=== PATIENT | male | born 1950 | race Caucasian/White ===

== ENCOUNTER 2018-11-11 17:16 | Emergency (ER) | payer MEDICARE ==
[2018-11-11] MEDS ORDERED: SODIUM CHLORIDE 0.9% 1,000 ML IV STA (17:26)
[2018-11-11 17:29] LABS: Glucose,Whole Blood 403 mg/dL (75-99)
[2018-11-11] MEDS ORDERED: SODIUM CHLORIDE 0.9% 1,000 ML IV ONE (17:45)
[2018-11-11 18:13] LABS: Basophils % (A) 1 %; Eosinophils # (A) 0.2 k/uL (0-0.7); Eosinophils % (A) 4 %; HCT 41.4 % (39.0-53.0); HGB 13.9 gm/dL (13.0-17.5); Lymphocytes # (A) 1.1 k/uL (1.0-4.8); Lymphocytes % (A) 24 %; MCH 30.2 pg (25.0-35.0); MCHC 33.6 g/dL (31.0-37.0); MCV 89.9 fL (80.0-100.0); Mean Platelet Volume 9.8; Monocytes # (A) 0.3 k/uL (0-1.0); Monocytes % (A) 5 %; Neutrophils % (A) 63 %; Platelet Count 109 k/uL (150-450); RBC 4.61 m/uL (4.30-5.90); RDW 14.3 % (11.5-15.5); WBC 4.8 k/uL (3.8-10.6)
[2018-11-11 18:22] LABS: ALT 42 U/L (21-72); AST 31 U/L (17-59); Albumin 3.8 g/dL (3.5-5.0); Alkaline Phosphatase 199 U/L (38-126); Anion Gap 10 mmol/L; Blood Urea Nitrogen 26 mg/dL (9-20); Calcium 9.5 mg/dL (8.4-10.2); Carbon Dioxide 20 mmol/L (22-30); Chloride 114 mmol/L (98-107); Glucose 402 mg/dL (74-99); Sodium 144 mmol/L (137-145); Total Bilirubin 0.6 mg/dL (0.2-1.3); Total Protein 6.6 g/dL (6.3-8.2)
[2018-11-11] MEDS ORDERED: INSULIN ASPART (NovoLOG) 100 UNIT/ML VIAL SQ ONE ×2 (18:25→20:52)
--- NOTE | 2018-11-11 18:55 | ED ---
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 Patient reports that he currently takes metformin 500 mg twice today for his type 2 diabetes. Patient reports that he has had blood sugars in the 400s for approximately one week. Patient reports that his primary care physician advised him to present to the ER for further evaluation. Patient otherwise asymptomatic. Patient denies any chest pain shortness of breath abdominal pain nausea vomiting diarrhea, fevers or chills. Patient denies any dysuria, cough, congestion. Systemic: Pt denies fatigue, myalgia, fever/chills, rash. Pt denies weakness, night sweats, weight loss. Neuro: Pt denies headache, visual disturbances, syncope or pre-syncope. HEENT: Pt denies ocular discharge or irritation, otalgia, rhinorrhea, pharyngitis or notable lymphadenopathy. Cardiopulmonary: Pt denies chest pain, SOB, heart palpitations, dyspnea on exertion. Abdominal/GI: Pt denies abdominal pain, n/v/d. : Pt denies dysuria, burning w/ urination, frequency/urgency. Denies new onset urinary or bowel incontinence. MSK: Pt denies myalgia, loss of strength or function in extremities. Neuro: Pt denies new onset weakness, paresthesias. - Related Data Home Medications Medication Instructions Recorded Confirmed Aspirin EC [Ecotrin Low Dose] 81 mg PO DAILY 11/11/18 11/11/18 Atenolol 25 mg PO DAILY 11/11/18 11/11/18 Atorvastatin [Lipitor] 20 mg PO DAILY 11/11/18 11/11/18 Desmopressin (Nonrefrigerated) 1 spray NASAL DIRECTED 11/11/18 11/11/18 [Ddavp 0.01% Nasal Glendo] Insulin NPH Hum/Reg Insulin Hm 12 unit SQ HS 11/11/18 11/11/18 [humuLIN 70/30 Kwikpen] Insulin NPH/Reg Insulin 70/30 16 units SQ QAM 11/11/18 11/11/18 [humuLIN 70/30 VIAL] Levothyroxine Sodium [Synthroid] 88 mcg PO DAILY 11/11/18 11/11/18 Lisinopril [Prinivil] 5 mg PO DAILY 11/11/18 11/11/18 Multivitamins, Thera [Multivitamin 1 tab PO DAILY 11/11/18 11/11/18 (formulary)] Cumberland-3 Fatty Acids [[place]umberland-3] 1,000 mg PO DAILY 11/11/18 11/11/18 Travoprost [Travatan Z 0.004%] 1 drop BOTH EYES HS 11/11/18 11/11/18 metFORMIN HCL ER [Glucophage Xr] 500 mg PO AC-BID 11/11/18 11/11/18 Allergies Allergy/AdvReac Type Severity Reaction Status Date / Time No Known Allergies Allergy Verified 11/11/18 18:20 Review of Systems ROS Statement: Those systems with pertinent positive or pertinent negative responses have been documented in the HPI. ROS Other: All systems not noted in ROS Statement are negative. Past Medical History Past Medical History: Diabetes Mellitus Additional Past Medical History / Comment(s): Brain aneurysm History of Any Multi-Drug Resistant Organisms: None Reported Additional Past Surgical History / Comment(s): Brain Past Psychological History: No Psychological Hx Reported Smoking Status: Current every day smoker Past Alcohol Use History: None Reported Past Drug Use History: None Reported General Exam - General Exam Comments Initial Comments: Constitutional: NAD, AOX3, Pt has pleasant affect. HEENT: NC/AT, trachea midline, neck supple, no lymphadenopathy. Posterior pharynx non erythematous, without exudates. External ears appear normal, without discharge. Mucous membranes moist. Eyes PERRLA, EOM intact. There is no scleral icterus. No pallor noted. Cardiopulmonary: RRR, no murmurs, rubs or gallops, no JVD noted. Lungs CTAB in anterior and posterior azar. No peripheral edema. Abdominal exam: Abdomen soft and non-distended. Abdomen non-tender to palpation in all 4 quadrants. Bowel sounds active in LLQ. No hepatosplenomegaly. No ecchymosis Neuro: CN II-XII grossly intact. No nuchal rigidity. MSK: No posterior calf tenderness bilaterally, homans sign negative bilaterally. Posterior tibialis and radial pulse +2 bilaterally. Sensation intact in upper and lower extremities. Full active ROM in upper and lower extremities, 5/5 stregnth. Limitations: no limitations Course Vital Signs 11/11/18 11/11/18 11/11/18 17:18 18:00 18:30 Temperature 97.9 F Pulse Rate 98 Respiratory 20 Rate Blood Pressure 124/71 121/87 126/87 O2 Sat by Pulse 97 97 95 Oximetry 11/11/18 19:00 Temperature Pulse Rate 84 Respiratory 18 Rate Blood Pressure 128/89 O2 Sat by Pulse 98 Oximetry Medical Decision Making - Medical Decision Making 67-year-old male patient with past medical history of type 2 diabetes, intracr anial hemorrhage secondary to brain aneurysm rupture presents to ED for elevated blood sugar. Patient reports that he currently takes metformin 500 mg twice today for his type 2 diabetes. Patient reports that he has had blood sugars in the 400s for approximately one week. Patient reports that his primary care physician advised him to present to the ER for further evaluation. Patient otherwise asymptomatic. Patient denies any chest pain shortness of breath abdominal pain nausea vomiting diarrhea, fevers or chills. Patient denies any dysuria, cough, congestion. Patient vital signs stable, afebrile. Physical exam did not display acute pathology. CBC non-impressive. CMP revealed glucose of 402. UA revealed +4 glucose. Patient was administered 1 L normal saline as well as 8 units subcu NovoLog. Patient sugar dropped to 290. Patient measured 4 more units of subcu insulin. Patient sugar decreased to 61. Patient continues to be asymptomatic, denies any complaints. Patient discharge and follow-up with his primary care provider tomorrow for management of diabetes medications. Patient return to ER if condition worsens in any way. Case discussed with Dr. John. - Lab Data Result diagrams: 11/11/18 18:05 11/11/18 18:05 Lab Results 11/11/18 11/11/18 11/11/18 Range/Units 06:57 17:25 18:05 WBC (3.8-10.6) k/uL RBC (4.30-5.90) m/uL Hgb (13.0-17.5) gm/dL Hct (39.0-53.0) % MCV (80.0-100.0) fL MCH (25.0-35.0) pg MCHC (31.0-37.0) g/dL RDW (11.5-15.5) % Plt Count (150-450) k/uL Neutrophils % % Lymphocytes % % Monocytes % % Eosinophils % % Basophils % % Neutrophils # (1.3-7.7) k/uL Lymphocytes # (1.0-4.8) k/uL Monocytes # (0-1.0) k/uL Eosinophils # (0-0.7) k/uL Basophils # (0-0.2) k/uL Sodium 144 (137-145) mmol/L Potassium 4.0 (3.5-5.1) mmol/L Chloride 114 H (98-107) mmol/L Carbon Dioxide 20 L (22-30) mmol/L Anion Gap 10 mmol/L BUN 26 H (9-20) mg/dL Creatinine 0.98 (0.66-1.25) mg/dL Est GFR (CKD-EPI)AfAm >90 (>60 ml/min/1.73 sqM) Est GFR (CKD-EPI)NonAf 81 (>60 ml/min/1.73 sqM) Glucose 402 H (74-99) mg/dL POC Glucose (mg/dL) 403 H (75-99) mg/dL POC Glu Air [place] ID Luli Cali Calcium 9.5 (8.4-10.2) mg/dL Total Bilirubin 0.6 (0.2-1.3) mg/dL AST 31 (17-59) U/L ALT 42 (21-72) U/L Alkaline Phosphatase 199 H (38-126) U/L Total Protein 6.6 (6.3-8.2) g/dL Albumin 3.8 (3.5-5.0) g/dL Urine Color Light Yellow Urine Appearance Clear (Clear) Urine pH 5.0 (5.0-8.0) Ur Specific [place] 1.033 (1.001-1.035) Urine Protein Negative (Negative) Urine Glucose (UA) 4+ H (Negative) Urine Ketones Negative (Negative) Urine Blood Negative (Negative) Urine Nitrite Negative (Negative) Urine Bilirubin Negative (Negative) Urine Urobilinogen <2.0 (<2.0) mg/dL Ur Leukocyte Esterase Negative (Negative) Acetone, Qual Negative (Negative) 11/11/18 11/11/18 11/11/18 Range/Units 18:05 19:41 20:37 WBC 4.8 (3.8-10.6) k/uL RBC 4.61 (4.30-5.90) m/uL Hgb 13.9 (13.0-17.5) gm/dL Hct 41.4 (39.0-53.0) % MCV 89.9 (80.0-100.0) fL MCH 30.2 (25.0-35.0) pg MCHC 33.6 (31.0-37.0) g/dL RDW 14.3 (11.5-15.5) % Plt Count 109 L (150-450) k/uL Neutrophils % 63 % Lymphocytes % 24 % Monocytes % 5 % Eosinophils % 4 % Basophils % 1 % Neutrophils # 3.0 (1.3-7.7) k/uL Lymphocytes # 1.1 (1.0-4.8) k/uL Monocytes # 0.3 (0-1.0) k/uL Eosinophils # 0.2 (0-0.7) k/uL Basophils # 0.0 (0-0.2) k/uL Sodium (137-145) mmol/L Potassium (3.5-5.1) mmol/L Chloride (98-107) mmol/L Carbon Dioxide (22-30) mmol/L Anion Gap mmol/L BUN (9-20) mg/dL Creatinine (0.66-1.25) mg/dL Est GFR (CKD-EPI)AfAm (>60 ml/min/1.73 sqM) Est GFR (CKD-EPI)NonAf (>60 ml/min/1.73 sqM) Glucose (74-99) mg/dL POC Glucose (mg/dL) 337 H 290 H (75-99) mg/dL POC Glu Air [place] ID Bj KalynSummer Hong Calcium (8.4-10.2) mg/dL Total Bilirubin (0.2-1.3) mg/dL AST (17-59) U/L ALT (21-72) U/L Alkaline Phosphatase (38-126) U/L Total Protein (6.3-8.2) g/dL Albumin (3.5-5.0) g/dL Urine Color Urine Appearance (Clear) Urine pH (5.0-8.0) Ur Specific [place] (1.001-1.035) Urine Protein (Negative) Urine Glucose (UA) (Negative) Urine Ketones (Negative) Urine Blood (Negative) Urine Nitrite (Negative) Urine Bilirubin (Negative) Urine Urobilinogen (<2.0) mg/dL Ur Leukocyte Esterase (Negative) Acetone, Qual (Negative) 11/11/18 Range/Units 21:33 WBC (3.8-10.6) k/uL RBC (4.30-5.90) m/uL Hgb (13.0-17.5) gm/dL Hct (39.0-53.0) % MCV (80.0-100.0) fL MCH (25.0-35.0) pg MCHC (31.0-37.0) g/dL RDW (11.5-15.5) % Plt Count (150-450) k/uL Neutrophils % % Lymphocytes % % Monocytes % % Eosinophils % % Basophils % % Neutrophils # (1.3-7.7) k/uL Lymphocytes # (1.0-4.8) k/uL Monocytes # (0-1.0) k/uL Eosinophils # (0-0.7) k/uL Basophils # (0-0.2) k/uL Sodium (137-145) mmol/L Potassium (3.5-5.1) mmol/L Chloride (98-107) mmol/L Carbon Dioxide (22-30) mmol/L Anion Gap mmol/L BUN (9-20) mg/dL Creatinine (0.66-1.25) mg/dL Est GFR (CKD-EPI)AfAm (>60 ml/min/1.73 sqM) Est GFR (CKD-EPI)NonAf (>60 ml/min/1.73 sqM) Glucose (74-99) mg/dL POC Glucose (mg/dL) 261 H (75-99) mg/dL POC Glu Air [place] ID Summer Turner Calcium (8.4-10.2) mg/dL Total Bilirubin (0.2-1.3) mg/dL AST (17-59) U/L ALT (21-72) U/L Alkaline Phosphatase (38-126) U/L Total Protein (6.3-8.2) g/dL Albumin (3.5-5.0) g/dL Urine Color Urine Appearance (Clear) Urine pH (5.0-8.0) Ur Specific [place] (1.001-1.035) Urine Protein (Negative) Urine Glucose (UA) (Negative) Urine Ketones (Negative) Urine Blood (Negative) Urine Nitrite (Negative) Urine Bilirubin (Negative) Urine Urobilinogen (<2.0) mg/dL Ur Leukocyte Esterase (Negative) Acetone, Qual (Negative) Disposition Clinical Impression: Hyperglycemia Disposition: HOME SELF-CARE Condition: Stable Instructions (If sedation given, give patient instructions): Diabetes and Exercise (ED), Type 2 Diabetes in Adults: New Diagnosis (ED), Hypoglycemia in a Person with Diabetes (ED) Additional Instructions: Patient to adhere to previously discussed treatment plan and will take medication(s) as directed. Patient to follow up with PCP in 1-2 days. Patient to return to ED if symptoms do not improve. Follow-up with primary care provider tomorrow for management of diabetes medications. Return immediately to the ER if new signs or symptoms develop. Return to ER if signs symptoms develop including lightheadedness, shortness of breath, chest pain, nausea vomiting or diarrhea. Is patient prescribed a controlled substance at d/c from ED?: No Referrals: Jack Mauro MD [Primary Care Provider] - 1-2 days
--- NOTE | 2018-11-11 18:58 | XR ---
EXAMINATION TYPE: XR chest 2V DATE OF EXAM: 11/11/2018 COMPARISON: NONE HISTORY: Hyperglycemia. Chest pain TECHNIQUE: Frontal and lateral views of the chest are obtained. FINDINGS: Heart and mediastinum are normal. Lungs are clear. Costophrenic angles are clear. Bony tho rax is intact. Pulmonary vascularity is normal. IMPRESSION: Normal chest
[2018-11-11 19:07] LABS: Appearance,Urine Clear (Clear); Bilirubin,Urine Negative (Negative); Blood,Urine Negative (Negative); Color,Urine Light Yellow; Glucose,Urine (UA) 4+ (Negative); Ketones,Urine Negative (Negative); Leukocyte Esterase,Urine Negative (Negative); Nitrite,Urine Negative (Negative); Protein,Urine Negative (Negative); Specific Gravity,Urine 1.033 (1.001-1.035); Urobilinogen,Urine <2.0 mg/dL (<2.0)
[2018-11-11 19:19] VITALS: RESP 18
[2018-11-11] MEDS ORDERED: SODIUM CHLORIDE 0.9% 500 ML 500 ML IV STA (19:47)
[2018-11-11 19:56] LABS: Glucose,Whole Blood 337 mg/dL (75-99)
[2018-11-11 20:40] LABS: Glucose,Whole Blood 290 mg/dL (75-99)
[2018-11-11 21:34] LABS: Glucose,Whole Blood 261 mg/dL (75-99)
[2018-11-11 21:54] VITALS: BP 112/74; PULSE 73; TEMP 98.1
== END 2018-11-11 22:02 | disposition home or self-care (01) ==
LOC: EC 17:16
DX: E11.65 Type 2 diabetes mellitus with hyperglycemia (principal); F17.200 Nicotine dependence, unspecified, uncomplicated; Z86.69 Personal history of other diseases of the nervous system and sense organs; Z98.890 Other specified postprocedural states; Z79.4 Long term (current) use of insulin; Z79.82 Long term (current) use of aspirin; Z79.890 Hormone replacement therapy; Z79.899 Other long term (current) drug therapy; Z53.8 Procedure and treatment not carried out for other reasons
CPT/HCPCS: 36415; 71046; 80053; 81003; 82009; 85025; 96360; 96361; 99285